=== PATIENT | female | born 1970 | race Two or more races ===

== ENCOUNTER 2018-11-14 06:15 | Inpatient (IN) | payer OTHER ==
[2018-11-14] VITALS (11 sets, daily range): BP systolic 91–140; BP diastolic 50–72
[~2018-11-14] VITALS: Ht 157.5 cm; Wt 94.8 kg
--- NOTE | 2018-11-14 07:13 | NUR ---
admitted a 47 y/o,f. a, ox4, breathing evenly. no SOB. NAD. skin warm and dry. able to provide full medical hx was provided by the pt. pt aware of her procedure, consent for sx, anesthesia and blood transfusion was obtained from the pt with understanding. IV 20G was started on the RAC with good blood return. vss. call light within reach, will cont to monitor ,
--- NOTE | 2018-11-14 07:41 | NUR ---
PATIENT WAS PICKED UP BY OR STAFF TO THE ER IN STABLE CONDITION. PT'S PHONE WILL STAY WITH AT THE NURSE STATION AT THIS TIME.
--- NOTE | 2018-11-14 07:45 | NUR ---
MS RN NOTES RECEIVED REPORT FROM PREVIOUS SHIFT. PATIENT OUT OF UNIT AT THIS TIME. CURRENTLY IN OR FOR PROCEDURE.
[2018-11-14] MEDS ORDERED: MIDAZOLAM HCL 2 MG/2ML VIAL ONE (08:14)
[2018-11-14] MEDS ORDERED: HYDROMORPHONE INJ 2 MG/ML DISP.SYRIN ONE (08:14)
[2018-11-14] MEDS ORDERED: ROCURONIUM BROMIDE 50 MG/5 ML ONE ×2 (08:14→09:17)
[2018-11-14] MEDS ORDERED: SCOPOLAMINE HBR 1 EA PATCH.TD72 TD ONE (08:28)
[2018-11-14] MEDS ORDERED: LIDOCAINE HCL/PF 1% 30 ML SDV ONE (09:17)
[2018-11-14] MEDS ORDERED: BUPIVACAINE MPF 0.5% W/EPI INJ 30 ML VIAL ONE (09:17)
[2018-11-14] MEDS ORDERED: ONDANSETRON HCL/PF 4 MG/2 ML VIAL IVP PRN (11:00)
[2018-11-14] MEDS ORDERED: HYDROMORPHONE INJ 2 MG/ML DISP.SYRIN IV PRN (11:00)
--- NOTE | 2018-11-14 11:40 | NUR ---
MS RN NOTES PATIENT ARRIVED AT UNIT. ARRIVED VIA HOSPITAL BED. REPORT RECEIVED FROM TOOTIE BADILLO. PATIENT AWAKE, ALERT AND ORIENTED X 4, VERBALLY RESPONSIVE AND RESPONDS TO VERBAL AND TACTILE STIMULI. BREATHING EVEN AND UNLABORED. NO ACUTE DISTRESS NOTED. NO CHANGES IN LOC NOTED. PATIENT CALM AND RELAXED. PATIENT S/P LAP RIGHT SALPINGO-OOPHERECTOMY, APPENDECTOMY, LIVER BIOPSY. PROCEDURE DONE WITH DR. TOOTIE BELTRAN. PATIENT ORIENTED TO UNIT, STAFF, PLAN OF CARE. BILATERAL SCDs IN PLACE. WILL CONTINUE TO MONITOR. BED LOCKED AND IN LOW POSITION. BILATERAL UPPER SIDE RAILS UP AND LOCKED. CALL LIGHT WITHIN EASY REACH
[2018-11-14] MEDS ORDERED: ALBU18HF2 IH (14:16)
--- NOTE | 2018-11-14 14:30 | NUR ---
MS RN NOTES (+) BOWEL SOUNDS ON AUSCULTATION ON ALL QUADRANTS. PATIENT DENIES PASSING GAS. AMBULATED TO BATHROOM AND URINATED. WILL CONTINUE TO MONITOR
[2018-11-14] MEDS: HYDROMORPHONE INJ 2 MG/ML DISP.SYRIN IV PRN (16:43)
--- NOTE | 2018-11-14 16:59 | NUR ---
MS RN NOTES PATIENT WITH REPORT OF FEELING PAIN ON THE ABDOMEN. EXPLAINED TO PATIENT THAT SHE HAS ORDERS FOR DILAUDID 1MG AND 0.5MG. PATIENT VERBALIZED THAT SHE HAD HISTORY OF REACTION TO DILAUDID PREVIOUSLY. REPORTED THAT SHE REMEMBERS HER HEART RATE GOING LOWER LAST TIME SHE HAD DILAUDID. VERBALIZED THAT SHE WANTS TO HAVE THE LOWER DOSE AT THIS TIME AND SHE WILL TRY TO SEE IF IT CAN ALLEVIATE THE PAIN. MEDICATION GIVEN ORDERED. WILL CONTINUE TO MONITOR
--- NOTE | 2018-11-14 19:00 | NUR ---
MS RN CLOSING NOTES Patient ambulating around the unit with family at this time. A/O x 4. VS stable with no acute distress. Breathing even and unlabored on room air with no signs and symptoms of respiratory distress. No complaints of pain at this time. Bowel sounds present in all quadrants. 20g PIV on LAC saline lock. No redness, swelling, nor pain on IV sites. IV sites flushes well. Patient kept, clean and dry. ABDOMINAL INCISIONS clean, dry, intact and open to air. All needs rendered. Bed locked and in lowest position with side rails x 2 up. Call light within reach. Will endorse plan of care to oncoming shift.
--- NOTE | 2018-11-14 19:51 | NUR ---
MS/RN OPENING NOTES RECEIVED PATIENT IN BED, AWAKE, ALERT, REPORTED UNABLE TO PASS GAS, AND ON NEEDED PAIN MEDICATION ,REQUIRE MONITORING FOR PAIN AND SAFETY MEASURES, REPORTED NEED FOR MONITORING FOR THE NIGHT AND THAT TO STAY TILL AM UNTIL PAIN IS UNDER CONTROL USES INCENTIVE SPIROMETER AND ASSIST FOR SAFETY,. BED LOCKED, WILL F/U WITH MD REGARDING PATIENT CONDITION AND CONCERN FOR ANY CHANGES.
[2018-11-15] MEDS: HYDROMORPHONE INJ 2 MG/ML DISP.SYRIN IV PRN (00:04)
--- NOTE | 2018-11-15 00:15 | NUR ---
MS/RN NOTES PATIENT REPORTED PAIN IN ABDOMEN, AT 10/08 , REQUESTED FOR PAIN MEDICATION, PRN DILAUDID 0.25ML PER MD ORDER, B/P CHECK SBP ABOVE 108M WILL MONITOR PAIN RELIEF AND EFFECTIVENESS. Addendum: 11/15/18 at 0641 by BHUPENDRA JI RN [phone] MS/JUSTINO NOTES PATIENT IN BED, SLEPT DURING THE NIGHT, PAIN MONITORED AND WITH RELIEF, KEPT COMFORTABLE, RESPIRATIONS EVEN AND UNLABORED, SKIN WARM TO TOUCH. BED LOCKED, CALL LIGHTS WITHIN REACH. WILL MONITOR AND ENDORSE TO AM RN FOR TOD.
--- NOTE | 2018-11-15 07:30 | NUR ---
MS RN OPENING NOTE RECEIVED PT IN BED, RESTING WITH EYES CLOSED AND EASILY AROUSABLE. PT IS ALERT AND ORIENTED X4, DENIES CHEST PAIN, SOB, N/V. BREATHING IS EVEN AND UNLABORED ON ROOM AIR, NO ACUTE DISTRESS NOTED AT THIS TIME. LEFT A #20G IV IS SALINE LOCKED WITHOUT REDNESS OR SWELLING. ABD INCISIONS OPEN TO AIR WITHOUT EXCESSIVE REDNESS, SWELLING, DRAINAGE, OR PAIN. ALL NEEDS ATTENDED TO. BED IS LOCKED AN IN LOWEST POSITION, SIDE RAILS UP X2, BED ALARM ON, CALL LIGHT AND POSSESSIONS WITHIN REACH.
[2018-11-15 08:00] VITALS: BP_SYST 106; BP_SYST 110; BP_DIAS 61; BP_DIAS 62
--- NOTE | 2018-11-15 08:50 | NUR ---
MS RN NOTE PER , PT INFORMED HER THAT SHE HAD A BOWEL MOVEMENT. OKAY TO D/C IF PT TOLERATES SOFT DIET. ORDERS PLACED, KITCHEN INFORMED.
--- NOTE | 2018-11-15 10:36 | NUR ---
MS RN NOTE PT TOLERATED BREAKFAST TRAY WITH SOFT DIET. DENIES N/V, ABD PAIN, DISTENTION. INFORMED DR. MEANS, PROCEED WITH D/C. PT STATED SHE WILL CALL HER BROTHER AND INFORM THE NURSE OF A SEAMING MACHINE OPERATOR TIME.
--- NOTE | 2018-11-15 13:00 | NUR ---
MS RN PT DISCHARGED Pt discharged home via private car in medically stable condition, accompanied by mother. Pt is a/ox4, denies chest pain, sob, n/v, abd pain after eating soft diet trays x2. Breathing is even and unlabored on room air. Abdominal surgical sites are without excessive redness, swelling, drainage, at this time. Al belongings accounted for and belongings list signed and placed in chart. VS at baseline. Wound documentation completed per protocol. Discharge paperwork, prescription, and education, including dr recommendations of Ice pack to abdominal wall, 10-20 times per day, 20 minutes each, for pain and swelling, No heavy lifting, more than 20 pounds, x2 weeks, Ibuprofen 400-800 mg orally every 6 hours as needed for pain, Tylenol 500 mg every 6 hours as needed for pain, Stagger above medications so that they are 3 hours apart, Narcotics written in case above treatments are not sufficient for pain control, May shower tomorrow, Please followup in the office in 2 weeks, call to make an appointment at [phone], Sexual activity okay as long as you are comfortable and it is not [place], Do not drive or operate heavy machinery if in significant pain or on narcotics. Informed pt to call 911 or return to the nearest emergency room for chest pain, sob, abdominal pain/distension, blood in the urine, stool, or emesis, unilateral calf swelling, temperature that does not go down with Tylenol administration, increased redness, pain, drainage at the surgical sites, or change in mental status. Pt and mother at the bedside verbalized agreement and understanding. Left ac peripheral iv removed with catheter tip intact. The nurse staffing assistant accompanied the pt to the main lobby without incident.
== END 2018-11-15 13:00 | disposition home or self-care (01) | DRG 743 ==
LOC: DS 06:15 → MED 06:17
PROVIDERS: ADMIT Student in an Organized Health Care Education/Training Program; ATTEND Student in an Organized Health Care Education/Training Program
DX: D27.0 Benign neoplasm of right ovary (principal); J45.909 Unspecified asthma, uncomplicated; G89.29 Other chronic pain; Z96.651 Presence of right artificial knee joint; Z87.891 Personal history of nicotine dependence; E66.01 Morbid (severe) obesity due to excess calories; K76.0 Fatty (change of) liver, not elsewhere classified; Z80.1 Family history of malignant neoplasm of trachea, bronchus and lung; Z98.890 Other specified postprocedural states; Z79.51 Long term (current) use of inhaled steroids
CPT/HCPCS: 36415; 84703-TC; 86850-TC; 87070-TC; 87081-TC; 88304-TC; 88305-TC; 88307-TC; 88312-TC; 88313-TC; A6402; G0378; J0690; J1100; J1170; J1885; J2250; J2405; J2704; J2710; J3490